=== PATIENT | male | born 1975 | race Caucasian/White ===

== ENCOUNTER 2017-09-25 21:38 | Emergency (ER) | payer SELFPAY ==
--- NOTE | 2017-09-25 23:22 | RAD ---
RIGHT ELBOW FOUR VIEWS: HISTORY: Injury. Pain. Laceration. FINDINGS: No joint effusion. No radiopaque foreign body. No fracture. No cortical irregularity or periosteal reaction. IMPRESSION: No posttraumatic change. POS: [facility]
== END 2017-09-25 22:52 | disposition home or self-care (01) ==
LOC: SCSER 21:38
DX: S46.911A Strain of unspecified muscle, fascia and tendon at shoulder and upper arm level, right arm, initial encounter (principal); S50.01XA Contusion of right elbow, initial encounter; F17.210 Nicotine dependence, cigarettes, uncomplicated; V03.90XA Pedestrian on foot injured in collision with car, pick-up truck or van, unspecified whether traffic or nontraffic accident, initial encounter

== ENCOUNTER 2019-04-30 16:58 | Emergency (ER) | payer SELFPAY ==
[2019-04-30] MEDS ORDERED: Lidocaine 1% (PF) 30 ML VIAL ONE (17:40)
[2019-04-30] MEDS ORDERED: Adacel (T-DAP) 0.5 ML SYRINGE ONE (17:40)
[2019-04-30] MEDS ORDERED: Bacitracin 1 PK ONE (18:18)
== END 2019-04-30 18:39 | disposition home or self-care (01) ==
LOC: ERS 16:58
DX: S60.457A Superficial foreign body of left little finger, initial encounter (principal); F17.210 Nicotine dependence, cigarettes, uncomplicated; W26.8XXA Contact with other sharp object(s), not elsewhere classified, initial encounter
CPT/HCPCS: 90471; 90715; J2001